=== PATIENT | female | born 1975 | race Caucasian/White ===

== ENCOUNTER 2018-02-19 09:06 | Emergency (ER) | payer OTHER ==
[2018-02-19 09:21] VITALS: BP 150/88; PULSE 88; TEMP 98.6; BMI 27.4
--- NOTE | 2018-02-19 10:41 | PDOC ---
History of Present Illness - General Chief Complaint: Pain Stated Complaint: LEFT BREAST PAIN Time Seen by Provider: 02/19/18 10:26 History Source: Patient Exam Limitations: No Limitations - History of Present Illness Initial Comments: 02/19/18 10:38 43-year-old female presents to ED with complaints of swelling to the left breast around the nipple and when she squeezed this morning had noted some greenish drainage. Patient states is susceptible to abscesses and is had numerous ones over the course of the last 5 years. Patient denies history of MRSA patient denies fever and states gets yearly mammograms. Timing/Duration: getting worse Severity: mild, moderate Associated Symptoms: reports: denies symptoms Past History - Travel Traveled outside of the country in the last 30 days: No - Past Medical History Allergies/Adverse Reactions: Allergies Allergy/AdvReac Type Severity Reaction Status Date / Time methocarbamol [From Robaxin] Allergy Verified 02/19/18 09:16 COPD: No Other medical history: fibroids - Suicide/Smoking/Psychosocial Hx Smoking History: Never smoked Number of Cigarettes Smoked Daily: 10 Information on smoking cessation initiated: Yes Hx Alcohol Use: No Drug/Substance Use Hx: No Substance Use Type: None Patient Lives Alone: No Lives with/in: spouse/SO Review of Systems - Review of Systems Able to Perform ROS?: No Constitutional: No: Symptoms Reported Respiratory: No: Symptoms reported Integumentary: Yes: Erythema, Lumps Neurological: No: Symptoms reported Endocrine: No: Symptoms Reported *Physical Exam - Vital Signs Last Vital Signs Temp Pulse Resp BP Pulse Ox 98.6 F 88 18 150/88 100 02/19/18 09:17 02/19/18 09:17 02/19/18 09:17 02/19/18 09:17 02/19/18 09:17 - Physical Exam General Appearance: Yes: Nourished, Appropriately Dressed. No: Apparent Distress Integumentary: positive: Other (Noted semifirm erythematous mass over the left nipple measuring approximately 4 x3 centimeters. No nipple drainage upon palpation no increased warmth to area. No nipple dimpling, or no palpable fluctuance) Neurologic: positive: Motor Strength 5/5 (ambulatory) ED Treatment Course - RADIOLOGY Radiology Studies Ordered: Category Date Time Status BREAST US LEFT LIMITED [US] Stat Ultrasound 02/19/18 10:26 Ordered Medical Decision Making - Medical Decision Making 02/19/18 10:40 Patient with erythematous tender mass under the left nipple concerning for abscess versus mass. Patient ordered for breast ultrasound 02/19/18 10:54 Ultrasound shows an ill-defined fluid collection within the rectal air area letter portion of the breast measuring 3.9 x 2.8 x 2cm. is increased vascularity about this collection. In light of clinical history this most likely represents an abscess.Clinical correlation and follow-up is now recommended. BI-RADS Category 3 *DC/Admit/Observation/Transfer Diagnosis at time of Disposition: Acute abscess of areola - Discharge Dispostion Disposition: HOME Condition at time of disposition: Good - Referrals - Patient Instructions Printed Discharge Instructions: DI for Skin Abscess Additional Instructions: Please take Bactrim as prescribed and please follow-up in one week with your doctor for repeat ultrasound or return to the ED if symptoms worsen. Please also apply warm soaks to the affected area 4 times a day for at least 15 minutes of constant heat to promote healing. Please do not squeezer manipulated area. May take Tylenol Motrin for pain. - Post Discharge Activity
== END 2018-02-19 11:36 | disposition home or self-care (01) ==
LOC: JERFT 09:06
DX: N61.1 Abscess of the breast and nipple (principal)
CPT/HCPCS: 76642-TC-LT; 99281-25

== ENCOUNTER 2020-09-03 04:11 | Inpatient (IN) | payer OTHER ==
[2020-08-29 15:15] VITALS: BMI 27.8
[2020-09-03] MEDS ORDERED: ceFAZolin SODIUM 1 GM VIAL ONE (06:45)
[2020-09-03] MEDS ORDERED: BUPIVACAINE HCL/PF 0.5% (5MG/ML) 10 ML VIAL ONE (07:37)
[2020-09-03] MEDS ORDERED: BUPIVACAINE LIPOSOME/PF (EXPAREL) 266 MG/20 ML VIAL ONE (07:38)
[2020-09-03] MEDS ORDERED: CEFAZOLIN 2 GM in DEXTROSE 5%-WATER - 100 ML IVPB ONE (08:00)
[2020-09-03] MEDS ORDERED: MIDAZOLAM HCL 2 MG/2 ML SINGLE DOSE VIAL ONE ×3 (08:17→09:13)
[2020-09-03] MEDS ORDERED: LIDOCAINE HCL/PF 2% SDV 5ML VIAL ONE (09:12)
[2020-09-03] MEDS ORDERED: PROPOFOL 20 ML ONE ×2 (09:12→10:21)
[2020-09-03] MEDS ORDERED: fentaNYL CITRATE 250 MCG/5 ML VIAL ONE (09:12)
[2020-09-03] MEDS ORDERED: ROCURONIUM BROMIDE 50 MG/5 ML SYRINGE ONE (09:13)
[2020-09-03] MEDS ORDERED: ceFAZolin SODIUM 1 GM VIAL IVPB ONE (09:28)
[2020-09-03] MEDS ORDERED: NEOSTIGMINE METHYLSULFATE 0.5 MG/1 ML - 10 ML MDV ONE (10:25)
[2020-09-03] MEDS ORDERED: GLYCOPYRROLATE 0.2 MG/1 ML VIAL ONE (10:25)
[2020-09-03] MEDS ORDERED: KETOROLAC TROMETHAMINE 30 MG/1 ML VIAL ONE (10:27)
[2020-09-03] MEDS ORDERED: IBUPROFEN 800 MG/8 ML IJ IVPB PRN (10:52)
[2020-09-03] MEDS ORDERED: oxyCODONE HCL 5 MG TABLET PO PRN ×2 (10:52→11:23)
[2020-09-03] MEDS ORDERED: IBUPROFEN 600 MG TABLET (FP) PO PRN (10:52)
[2020-09-03] MEDS ORDERED: ONDANSETRON 4 MG/2 ML VIAL IVPUSH PRN ×2 (10:52→11:09)
[2020-09-03] MEDS ORDERED: ACETAMINOPHEN 325 MG TABLET (FP) PO PRN (10:55)
[2020-09-03] MEDS ORDERED: ELECTROLYTE-148 SOLN 1,000 ML IV SCH (11:00)
[2020-09-03] MEDS ORDERED: ACETAMINOPHEN 1000 MG/100 ML VIAL (NON FORMULARY) IVPB ONE ×2 (11:09→11:15)
[2020-09-03] MEDS ORDERED: ACETAMINOPHEN INJECTION 100 ML IVPB ONE (11:11)
[2020-09-03] MEDS ORDERED: oxyCODONE HCL 5 MG TABLET ONE (12:29)
[2020-09-03] MEDS ORDERED: oxyCODONE HCL 5 MG TABLET PO ONE (12:30)
[2020-09-03] MEDS: ceFAZolin 2 GRAM PREMIX BAG IVPB SCH (19:06)
[2020-09-03] MEDS: oxyCODONE HCL 10 MG SUSTAINED ACTING TABLET PO SCH (21:13)
[2020-09-04] MEDS: ceFAZolin 2 GRAM PREMIX BAG IVPB SCH ×2 (01:22→11:11)
[2020-09-04 07:24] LABS: HEMATOCRIT 32.2 % (32.4-45.2); MCH 31.2 pg (25.7-33.7); MCHC 34.2 g/dl (32.0-36.0); MEAN CELL VOLUME 91.2 fl (80-96); MEAN PLT VOLUME 9.5 fl (7.5-11.1); PLATELET COUNT 152 K/MM3 (134-434); RBC 3.53 M/mm3 (3.60-5.2); RDW 12.5 % (11.6-15.6); WHITE BLOOD COUNT 6.5 K/mm3 (4.0-10.0)
[2020-09-04 07:48] LABS: CALCIUM 7.8 mg/dL (8.5-10.1)
[2020-09-04 07:49] LABS: BLOOD UREA NITROGEN 5.7 mg/dL (7-18)
[2020-09-04 07:52] LABS: CREATININE 0.5 mg/dL (0.55-1.3)
[2020-09-04 09:02] VITALS: BP 126/71; PULSE 66; TEMP 98.2
[2020-09-04] MEDS ORDERED: BISACODYL 5 MG TABLET.DR (FP) PO ONE (09:15)
[2020-09-04] MEDS ORDERED: ENOXAPARIN NA (PORCINE) 40 MG/0.4 ML DISP.SYRIN SQ SCH (10:00)
[2020-09-04] MEDS ORDERED: amLODIPine BESYLATE 5 MG TABLET (FP) PO SCH (10:00)
[2020-09-04] MEDS ORDERED: PATIENT'S OWN MEDICATION (NON-FORMULARY) (Amlodipine Besylate/Benazepril [Amlodipine-Benaz PO SCH (10:00)
[2020-09-04] MEDS ORDERED: LISINOPRIL 10 MG TABLET PO SCH (10:00)
[2020-09-04] MEDS: oxyCODONE HCL 10 MG SUSTAINED ACTING TABLET PO SCH (11:11)
== END 2020-09-04 13:10 | disposition home or self-care (01) | DRG 743 ==
LOC: J2C 04:11 → J8W 14:02
PROVIDERS: ADMIT Obstetrics & Gynecology; ATTEND Obstetrics & Gynecology
PROC: 0UT70ZZ Resection of Bilateral Fallopian Tubes, Open Approach (ICD-10-PCS; 2020-09-03)
PROC: 0UT90ZL Resection of Uterus, Supracervical, Open Approach (ICD-10-PCS; principal; 2020-09-03 09:00)
DX: D25.9 Leiomyoma of uterus, unspecified (principal); N92.1 Excessive and frequent menstruation with irregular cycle; D64.9 Anemia, unspecified; R10.2 Pelvic and perineal pain; I10 Essential (primary) hypertension
CPT/HCPCS: 36415; 80048; 84703; 85027; 86850; 86900; 86901; 88302-TC; 88307-TC; 94010; 94760; J0131

== ENCOUNTER 2020-11-17 15:23 | Emergency (ER) | payer OTHER ==
[2020-11-17 15:28] VITALS: BP 132/66; PULSE 101; TEMP 97.8; BMI 26.5
== END 2020-11-17 16:53 | disposition home or self-care (01) ==
LOC: JERFT 15:23
DX: H60.8X9 Other otitis externa, unspecified ear (principal)
CPT/HCPCS: 99282-25

== ENCOUNTER 2021-07-24 21:56 | Emergency (ER) | payer OTHER ==
[2021-07-24 22:05] VITALS: BP 142/86; PULSE 89; TEMP 98.6; BMI 25.7
== END 2021-07-24 23:33 | disposition home or self-care (01) ==
LOC: JER 21:56 → JERFT 21:56 → JER 23:33
DX: L30.9 Dermatitis, unspecified (principal)
CPT/HCPCS: 99283-25

== ENCOUNTER 2022-11-15 22:58 | Emergency (ER) | payer OTHER ==
[2022-11-15 23:18] VITALS: BP 144/86; PULSE 98; RESP 20; TEMP 98.7; BMI 27.4
[2022-11-16 03:56] LABS: BASO % 0.9 % (0-2.0); EOS % 1.7 % (0-4.5); HEMOGLOBIN 13.1 GM/dL (10.7-15.3); LYMPH % 24.4 % (8-40); MCH 30.1 pg (25.7-33.7); MCHC 34.5 g/dl (32.0-36.0); MEAN CELL VOLUME 87.2 fl (80-96); MEAN PLT VOLUME 8.2 fl (7.5-11.1); MONO % 4.8 % (3.8-10.2); NEUT % 68.2 % (42.8-82.8); PLATELET COUNT 195 10^3/uL (134-434); RBC 4.36 M/mm3 (3.60-5.2); RDW 12.6 % (11.6-15.6); WHITE BLOOD COUNT 7.1 K/mm3 (4.0-10.0)
[2022-11-16 04:15] LABS: POTASSIUM 3.4 mmol/L (3.5-5.1)
[2022-11-16 04:17] LABS: CALCIUM 9.1 mg/dL (8.5-10.1)
[2022-11-16 04:18] LABS: ALBUMIN 3.9 g/dl (3.4-5.0); BLOOD UREA NITROGEN 5.1 mg/dL (7-18)
[2022-11-16 04:21] LABS: CREATININE 0.7 mg/dL (0.55-1.3)
[2022-11-16 04:22] LABS: BILIRUBIN,TOTAL 0.4 mg/dL (0.2-1)
[2022-11-16 04:23] LABS: TOT PROT 7.3 g/dl (6.4-8.2)
== END 2022-11-16 07:05 | disposition left against medical advice (07) ==
LOC: JER 22:58
DX: R07.2 Precordial pain (principal); R05.9 Cough, unspecified
CPT/HCPCS: 36415; 71045-TC-FY; 80053; 84484; 85025; 93005; 93010; 99285-25